=== PATIENT | female | born 1975 | race Caucasian/White ===

== ENCOUNTER 2018-03-15 07:19 | Day surgery (SDC) | payer MEDICARE ==
[~2018-03-15] VITALS: Ht 165.1 cm; Wt 88.5 kg
--- NOTE | ~2018-03-15 | OP ---
PATIENT NAME: ALANNA BRAY MEDICAL RECORD: [id number] :75 LOCATION:BA ADMISSION DATE: SURGEON: NASIMA RODRIGUEZ MD DATE OF OPERATION: 03/15/2018 REFERRING PHYSICIAN: Roman Arizmendi MD PREOPERATIVE DIAGNOSES: ESRD, dependence on hemodialysis, multiple myeloma, on chemotherapy and thrombocytopenia due to chemotherapy. OPERATION PERFORMED: Creation of a Kyle type brachiobasilic AV fistula as part of 2 planned operations to create a translocated basilic vein fistula. SURGEON: Nasima Rodriguez MD ANESTHESIA: Regional block plus general by LMA per FUR STRETCHER. PREOPERATIVE NOTE: Ms. Bray is a very nice 42-year-old white female patient who has myeloma and renal failure. She is presently on dialysis with a catheter. She needs long-term access and she is brought to the hospital today to try to create a fistula in her left arm. This morning, she was noted to be hyperkalemic with a potassium of 6.1 and her platelet count was about 56,000. She was dialyzed and she is to be administered a unit of platelets in the OR. Under nerve block and anesthesia, the patient was placed in supine position, prepped and draped in a sterile manner. I examined her first with a venous tourniquet in place using duplex ultrasound and I noted she does have an excellent basilic vein for a translocated fistula. I made a hockey stick shaped incision at the antecubital space along and over the basilic vein. The basilic vein was visualized and dissected. Its branches ligated with 3-0 Vicryl and divided. The vein was transected and bevelled and flushed with heparinized saline and treated with topical papaverine. The brachial artery was exposed and controlled proximally and distally with doubly looped Silastic tapes. The artery was opened and it was flushed proximally and distally with heparinized saline. The vein was then anastomosed end-to-side, end of vein to side of artery using running 7-0 Prolene and Evicel sealant. The suture line was subsequently found to be hemostatic and there was excellent flow and a palpable thrill over the anastomosis. The hand-held Doppler signal was continuous pulsatile flow, very satisfactory result. The wound was closed with interrupted inverted 3-0 Vicryl and then running intracuticular 4-0 Stratafix. It was sealed with Dermabond glue and dressed with Maxorb Ag, Tegaderm, and Cavilon skin prep. PLAN: I plan for the patient to go back to outpatient from the recovery room and will be discharged to home when meets criteria. I see her back in my office next week and I will ask her if she wishes us to leave the original operative dressing intact and I will remove it when she sees me next. She is to continue all of her same medications and she is given a prescription for 10 [place] 5/325 tablets. TRANSINT:[id number] Voice Confirmation ID: [id number] DOCUMENT ID: [id number] OPERATIVE REPORT [id number] ALANNA BRAY JAMES MD at 1623 CC: JA DESHPANDE MD and ROMAN ARIZMENDI [id number] DICTATION DATE: 03/15/18 1546 PANCAKE PROFESSIONAL: 03/15/18 1604 [facility] [address] [place] [address]
[2018-03-15 07:47] LABS: HEMATOCRIT 31.6 % (36.0-48.0); HEMOGLOBIN 10.2 g/dL (12-16); MCH 35.1 pg (26.0-34.0); MCHC 32.3 g/dL (31.0-37.0); MCV 108.6 fL (80.0-100.0); MEAN PLATELET VOLUME 11.1 fL (7.4-10.4); PLATELET COUNT 56 10x3/uL (130-400); RBC 2.91 10x6/uL (4.00-5.40); WBC 2.7 10x3/uL (4.8-10.8)
[2018-03-15 07:53] LABS: ANION GAP 18.5 mmol/L (8-16); CALCIUM 9.3 mg/dL (8.5-10.1); CARBON DIOXIDE 23.6 mmol/L (21.0-32.0); CREATININE - SERUM 8.7 mg/dL (0.6-1.3)
[2018-03-15 08:00] LABS: POTASSIUM - SERUM 6.1 mmol/L (3.5-5.1)
[2018-03-15 08:19] LABS: APTT 31.6 SECONDS (22.8-39.4); INR 0.97 (0.85-1.17); PROTIME 12.5 SECONDS (11.6-15.0)
[2018-03-15 08:48] LABS: ANISOCYTOSIS OCC; EOSINOPHILS 10 % (0-7); LYMPHOCYTES 29 % (15-50); MONOCYTES 13 % (2-11); NEUTROPHILS 45 % (40-80); PLATELET ESTIMATE DECREASED; ROULEAUX OCC; SMUDGE CELLS OCC
[2018-03-15] MEDS ORDERED: LYRICA75 MG PO (09:09)
[2018-03-15] MEDS ORDERED: RENVELA800 MG PO (09:10)
[2018-03-15] MEDS ORDERED: ZOVIRAX200 MG PO (09:11)
[2018-03-15] MEDS ORDERED: FOLIC ACID1 MG PO (09:11)
[2018-03-15] MEDS ORDERED: ZYRTEC10 MG PO (09:12)
[2018-03-15] MEDS ORDERED: COUMADIN5 MG PO (09:13)
[2018-03-15] MEDS ORDERED: PROZAC20 MG (09:15)
[2018-03-15] MEDS ORDERED: PROTONIX40 MG PO (09:16)
[2018-03-15] MEDS ORDERED: DECADRON4 MG (09:17)
[2018-03-15] MEDS ORDERED: REVLIMID5 MG (09:18)
[2018-03-15] MEDS ORDERED: TOPROL XL25 MG PO (09:49)
[2018-03-15 12:19] VITALS: Ht 165.1 cm; Wt 88.5 kg
[2018-03-15 13:43] LABS: HCG SERUM NEGATIVE (NEGATIVE)
[2018-03-15] MEDS ORDERED: NORCO 5/325 TAB1 TAB PO (16:47)
== END 2018-03-15 17:20 | disposition home or self-care (01) ==
LOC: D.OPS 07:19 → EDBD 10:10 → D.OPS 10:10
PROVIDERS: Internal Medicine Nephrology; Surgery
DX: N18.6 End stage renal disease (principal); Z99.2 Dependence on renal dialysis; C90.00 Multiple myeloma not having achieved remission; D69.59 Other secondary thrombocytopenia; T45.1X5A Adverse effect of antineoplastic and immunosuppressive drugs, initial encounter; Z01.812 Encounter for preprocedural laboratory examination

== ENCOUNTER 2018-04-12 06:25 | Day surgery (SDC) | payer MEDICARE ==
[~2018-04-12] VITALS: Ht 165.1 cm; Wt 95.3 kg
--- NOTE | ~2018-04-12 | OP ---
PATIENT NAME: ALANNA BRAY MEDICAL RECORD: [id number] :75 LOCATION:BA ADMISSION DATE: SURGEON: NASIMA RODRIGUEZ MD DATE OF OPERATION: 04/12/2018 REFERRED BY: Roman Arizmendi MD PREOPERATIVE DIAGNOSES: 1. Mechanical complication or malfunction of right internal jugular HemoSplit tunneled dialysis catheter. 2. End-stage renal disease due to multiple myeloma without long-term access. OPERATION PERFORMED: Exchange of right internal jugular tunneled dialysis catheter under fluoroscopy and then additionally a second stage creation of a left brachial artery to translocated basilic vein arteriovenous fistula. SURGEON: Nasima Rodriguez MD ANESTHESIA: General with LMA per INFORMATION TECHNOLOGY OFFICER. PREOPERATIVE NOTE: Ms. Bray is a 43-year-old white female patient being treated for multiple myeloma, who is now in renal failure and is dialyzing with a right internal jugular HemoSplit. The HemoSplit is not functioning well and needs to be exchanged. About a month ago, she had a Kyle type brachiobasilic fistula created and is returned to the operating room now for the second stage to create the translocated fistula. DESCRIPTION OF PROCEDURE: Under general anesthesia in supine position, the patient was prepped and draped in a sterile manner. The cuff on the existing HemoSplit catheter was dissected from the surrounding subcutaneous tissues at the exit site. The cuff was seated well and there was no sign of infection there or of the tunnel. The catheter was backed out slightly and contrast injected to perform a superior venacavogram, which demonstrated no fibrin sheathing. The catheter was then completely removed over a Roadrunner wire, which was parked in the inferior vena cava. The distal 3 inches or tip of the catheter was sent for culture. A new 19-cm HemoSplit catheter was then inserted over the guidewire and positioned rather deeply into the right atrium. Both lumens were aspirated and returned blood easily. They were then flushed with saline and heparin locked, clamped and capped. The catheter was sutured to the skin with 2-0 Prolene and an additional 2-0 Prolene stitch was used to tighten the entry site, which was enlarged by the dissection. Sterile dressings were applied and note that all of this procedure was done under fluoroscopy. The patient was then reprepped and redraped with the left arm free in the operative field. Ultrasound was used and I noted satisfactory development of the Kyle fistula with dilation of the basilic vein. I made a long incision on the medial arm and mobilized the vein and then the vein was clamped distally and divided and bevelled, flushed with heparinized saline and treated with topical papaverine and prepared for anastomosis. It was placed in a very superficial subcutaneous tunnel and then brought back to the primary incision where it was sutured end-to-end with running 7-0 Prolene to the stump of the vein on the artery. With release of the occluding clamps and loops, excellent flow was established in the fistula and hemostasis was adequate although the patient was OPERATIVE REPORT [id number] ALANNA BRAY given 1 unit of platelets preop and intraop due to her chronic thrombocytopenia from chemotherapy for her myeloma. She did remain a little oozy. This was controlled with clips and ties of Vicryl and electrocautery and wound irrigation and infiltration with 0.25% Marcaine with epinephrine. The wound was closed over a 10-mm flat fluted closed suction drain brought out through a separate stab incision and attached to suction. The wound was closed with interrupted inverted 3-0 Vicryl and then running intracuticular 4-0 Stratafix. The incision was sealed with glue and dressed with Maxorb Ag, Tegaderm, and Cavilon skin prep. The drain was dressed with Tegaderm over a biodisc and all was then wrapped in Kerlix and bandage. The patient did have excellent pulsatile continuous Doppler flow in the fistula and preservation of pulsatile flow in the distal brachial artery and a weak, but discernible pulsatile flow in the ulnar and radial arteries. At that time in the operating room, her hand and forearm was quite cold from exposure during the case and I believe that the flow to her hand will be at least as good as it was preop. We will see when it warms up. Blood loss during the operation was difficult to quantitate due to this rather constant oozing, but I would estimate about 100 cc. None was replaced other than 1 unit of pheresed platelets and the wound was closed over a drain. No specimen was submitted. All sponges, instruments, and needles were accounted for. PLAN: Ms. Bray will go home with home health referral to see her daily to check and change her bandage p.r.n. and to check on her drain. We will plan to leave the drain in until it is draining less than 30 cc for 48 hours consecutively. She will be appointed to return to see me in my office next week. She will continue her usual renal diet and same medications, although she will not be resuming Coumadin until after at least the drain has been removed. She has been on Coumadin for history of deep vein thrombosis. TRANSINT:[id number] Voice Confirmation ID: [id number] DOCUMENT ID: [id number] NASIMA RODRIGUEZ MD at 1657 CC: ROMAN ARIZMENDI [id number] DICTATION DATE: 04/12/18 1336 GLOBE TESTER: 04/12/[address] [facility] [place] 04/12/18 [facility] [address] [place] [address]
[~2018-04-12 06:25] MED LIST: COUMADIN5 MG PO; DECADRON4 MG; FOLIC ACID1 MG PO; LYRICA75 MG PO; NORCO 5/325 TAB1 TAB PO; PROTONIX40 MG PO; PROZAC20 MG; RENVELA800 MG PO; REVLIMID5 MG; TOPROL XL25 MG PO; ZOVIRAX200 MG PO; ZYRTEC10 MG PO
[2018-04-12 06:52] LABS: BASOPHILS 0.6 % (0-2); EOSINOPHILS 16.3 % (0-7); HEMATOCRIT 37.2 % (36.0-48.0); HEMOGLOBIN 11.9 g/dL (12-16); IMMATURE GRANULOCYTES 0.8 % (0-5); LYMPHOCYTES 24.5 % (15-50); MCH 35.7 pg (26.0-34.0); MCV 111.7 fL (80.0-100.0); MEAN PLATELET VOLUME 11.8 fL (7.4-10.4); MONOCYTES 11.6 % (2-11); NEUTROPHILS 46.2 % (40-80); PLATELET COUNT 62 10x3/uL (130-400); RBC 3.33 10x6/uL (4.00-5.40); RDW 14.9 % (11.5-14.5); WBC 3.6 10x3/uL (4.8-10.8)
[2018-04-12 06:56] LABS: ANION GAP 14.7 mmol/L (8-16); CALCIUM 9.2 mg/dL (8.5-10.1); CARBON DIOXIDE 28.5 mmol/L (21.0-32.0); CREATININE - SERUM 7.8 mg/dL (0.6-1.3); POTASSIUM - SERUM 4.2 mmol/L (3.5-5.1)
[2018-04-12 06:59] LABS: APTT 30.8 SECONDS (22.8-39.4); INR 0.95 (0.85-1.17); PROTIME 12.4 SECONDS (11.6-15.0)
[2018-04-12 07:39] VITALS: Ht 165.1 cm; Wt 95.3 kg
[2018-04-12 08:30] LABS: HCG URINE NEGATIVE (NEGATIVE)
[2018-04-12] MEDS ORDERED: HYDROCODON-ACE1 EAC7 PO (13:17)
== END 2018-04-12 16:15 | disposition home or self-care (01) ==
LOC: D.OPS 06:25
PROVIDERS: Internal Medicine Nephrology; Surgery
DX: T82.49XA Other complication of vascular dialysis catheter, initial encounter (principal); Y83.8 Other surgical procedures as the cause of abnormal reaction of the patient, or of later complication, without mention of misadventure at the time of the procedure; I12.0 Hypertensive chronic kidney disease with stage 5 chronic kidney disease or end stage renal disease; N18.6 End stage renal disease; Z99.2 Dependence on renal dialysis; C90.00 Multiple myeloma not having achieved remission; D69.59 Other secondary thrombocytopenia; T45.1X5A Adverse effect of antineoplastic and immunosuppressive drugs, initial encounter